=== PATIENT | female | born 1945 | race American Indian/Alaskan Native ===

== ENCOUNTER 2020-07-08 14:53 | Inpatient (IN) | payer MEDICARE ==
[2020-07-08] MEDS ORDERED: DEXTROSE 50% IN WATER (25GM) 50 ML SYRINGE IV ONE ×5 (15:01→15:55)
[2020-07-08] MEDS ORDERED: SUCCINYLCHOLINE CHLORIDE 200 MG/10 ML INJ MDV ONE (15:18)
[2020-07-08] MEDS ORDERED: ETOMIDATE 20 MG/10 ML INJ IV ONE ×2 (15:18→15:34)
[2020-07-08] MEDS ORDERED: SODIUM CHLORIDE 0.9% 1000 ML 2,000 ML ONE (15:32)
[2020-07-08] MEDS ORDERED: SUCCINYLCHOLINE CHLORIDE 200 MG/10 ML INJ MDV IV ONE (15:34)
[2020-07-08] MEDS ORDERED: LORazepam 2 MG/ML VIAL IV PRN (15:47)
[2020-07-08] MEDS ORDERED: MINERAL OIL/PETROLATUM, WHITE OPHTH OINT 3.5 GM OU PRN (15:47)
[2020-07-08] MEDS ORDERED: LIP THERAPY VASELINE TP PRN (15:47)
[2020-07-08 15:58] LABS: Hemoglobin 8.2 gm/dl (10.1-14.3); Mean Corpuscular HGB Conc 31 % (30-34); Mean Corpuscular Volume 99 fl (79-97); Platelet Count 114 K/mm3 (140-440); Red Blood Count 2.72 M/mm3 (3.65-5.03); Red Cell Distribution Width 16.3 % (13.2-15.2)
[2020-07-08 16:08] LABS: INR 2.88 (0.87-1.13)
[2020-07-08 16:14] LABS: Creatine Kinase MB 13.1 ng/mL (0.0-4.0)
[2020-07-08 16:15] LABS: Albumin 1.6 g/dL (3.9-5); Bilirubin,Direct 3.7 mg/dL (0-0.2)
[2020-07-08 16:39] LABS: Calcium 5.8 mg/dL (8.4-10.2)
[2020-07-08 16:41] LABS: Band Neutrophils # (Manual) 0.1 K/mm3; Total Cells Counted 100
[2020-07-08 16:42] LABS: Platelet Estimate Consistent w Auto; RBC Morphology Normal
[2020-07-08 16:43] LABS: Bacteria,Urine 3+ /HPF (Negative); Bilirubin,Urine NEG (Negative); Blood,Urine MOD (Negative); Color,Urine Yellow (Yellow); Mucus,Urine 1+ /HPF; Urobilinogen,Urine < 2.0 mg/dL (<2.0)
[2020-07-08] MEDS ORDERED: SODIUM CHLORIDE 0.9% 500 ML 500 ML IV ONE (16:55)
[2020-07-08] MEDS ORDERED: CEFEPIME/NS 1 GM/100 ML 1 GM/100 ML BAG IV ONE (16:56)
[2020-07-08] MEDS ORDERED: SODIUM CHLORIDE 0.9% 1000 ML 1,000 ML IV ONE (16:57)
--- NOTE | 2020-07-08 16:58 | XRay Report ---
CHEST 1 VIEW 07/08/2020 3:50 PM INDICATION / CLINICAL INFORMATION: Tube placement. COMPARISON: None available. FINDINGS: SUPPORT DEVICES: There is an endotracheal tube with the tip approximately 3.5 cm above the genoveva. Th ere is a nasogastric tube with the tip overlying the gastric body and the proximal sidehole several c entimeters below the gastroesophageal junction. HEART / MEDIASTINUM: The heart size and pulmonary vasculature are normal. There is calcification in t he aortic arch without aneurysm. LUNGS / PLEURA: There is mild to moderate generalized increased opacity of the right hemithorax ever red to the left. The left lung is clear. No pneumothorax. ADDITIONAL FINDINGS: There is mild gaseous distention of the stomach and several small bowel loops in the right upper quadrant. There are surgical changes involving the right shoulder. IMPRESSION: 1. Endotracheal and nasogastric tubes in satisfactory position. 2. Mild to moderate posterior layering right pleural effusion. 3. Gaseous distention of the stomach and proximal small bowel. Signer Name: Julian Cisse MD Signed: 07/08/2020 4:53 PM Workstation Name: [id number]
[2020-07-08] MEDS ORDERED: LORazepam 100 MG in SODIUM CHLORIDE 0.9% 50 ML, EMPTY BAG 0 ML IV SCH (17:00)
[2020-07-08] MEDS ORDERED: VANCOMYCIN PHARMACY TO DOSE IV SCH (17:00)
[2020-07-08] MEDS ORDERED: ALBUTEROL 2.5 MG/3 ML NEBU IH PRN (17:02)
[2020-07-08] MEDS ORDERED: ACETAMINOPHEN 325 MG TAB PO PRN (17:07)
[2020-07-08] MEDS ORDERED: SODIUM CHLORIDE 0.9% 1000 ML IV SOLN IV ONE (17:07)
[2020-07-08] MEDS ORDERED: SODIUM CHLORIDE 0.9% 1000 ML 1,000 ML IV SCH (17:15)
[2020-07-08] MEDS: HYDROmorphone 1 MG/1 ML INJ IV PRN ×2 (17:18→20:25)
[2020-07-08] MEDS: NORepinephrine/NS 4 MG-250 ML 4 MG/250 ML BAG IV SCH (17:30)
--- NOTE | 2020-07-08 17:53 | Emergency Department Report ---
ED General Adult HPI - General Chief complaint: Altered Mental Status Stated complaint: LOW BLOOD SUGAR PUI?: No Source: family, EMS Mode of arrival: Stretcher Limitations: Altered Mental Status, Physical Limitation - History of Present Illness Initial comments: This is a 75-year-old female who was brought in by EMS. Paramedics informing that they were not able to initiate an IV. They found the patient to have a blood glucose of 17. They were called because the patient has not been eating or drinking for at least the past 2 days. She was obviously found to be poorly responsive. Medics stated they were uncertain if the patient was "hospice". However, as I begun resuscitative efforts, I called the family and learned that this was not the case. The patient's daughter stated that the patient is able to assist with self-care. She was not well familiar with the patient's medical history. She stated that she takes care of the patient and that her only known diagnosis is dementia. She states that she is ordinarily able to feed herself and that she "never leaves her alone". The daughter stated she would like to have "everything done" to keep the patient alive. Patient's respiration was shallow in the field. The medics initiated assisted ventilation with an Ambu bag mask. On arrival patient's pulse oximetry did read in the mid 90s. Patient had no obvious IV access. Nurses were unsuccessful in securing a line. Therefore I utilized an IO drill placing an IO catheter into the patient's right tibia. This was done without difficulty. It was flushed and was working amply well. D50 is quite difficult to push through a IO catheter. Therefore, it was diluted. We ended up pushing I believe 3 Amp through the tibial IO. The p atyuliana's mental status did appear to be improving but her blood sugar only registered as high as 40. I was then able to secure an EJ line on the left. We administered D50 into the left EJ line. The patient became somewhat more arousable but was still quite lethargic. Respiratory rate did improve some however her respirations remain shallow. Thus, I determined that elective intubation would be necessitated. Patient was given etomidate and succinylcholine. She was intubated without difficulty. Further work-up was obtained. The patient was treated for hypothermia with a bear hugger. She was given empiric antibiotics for sepsis. Ultimately she was admitted to the hospital service. -: days(s) - Related Data Allergies Allergy/AdvReac Type Severity Reaction Status Date / Time No Known Allergies Allergy Unverified 07/08/20 16:05 ED Review of Systems ROS: Stated complaint: LOW BLOOD SUGAR Other details as noted in HPI Comment: Unobtainable due to pts medical conditions ED Past Medical Hx - Past Medical History Hx Hypertension: Yes Hx Diabetes: Yes Additional medical history: Dementia - Surgical History Additional Surgical History: unable to assess - Social History Smoking Status: Unknown if ever smoked ED Physical Exam - General Limitations: Altered Mental Status, Physical Limitation General appearance: in no apparent distress, other (Shallow respirations) - Head Head exam: Present: atraumatic, normocephalic - Eye Eye exam: Present: normal appearance, scleral icterus - ENT ENT exam: Present: mucous membranes dry - Neck Neck exam: Present: normal inspection. Absent: tenderness, meningismus - Respiratory Respiratory exam: Present: respiratory distress (Shallow respirations, poor effort), other (Somewhat distant breath sounds on the right) - Cardiovascular Cardiovascular Exam: Present: regular rate, normal rhythm. Absent: systolic murmur, diastolic murmur, rubs, gallop - GI/Abdominal GI/Abdominal exam: Present: soft, distended, normal bowel sounds. Absent: tenderness, guarding, rebound, rigid - Extremities Exam Extremities exam: Present: other (No acute deformity) - Back Exam Back exam: Present: other (Initially unable to assess) - Neurological Exam Neurological exam: Present: altered, other (Appears to move all extremities) - Psychiatric Psychiatric exam: Present: other (Inapplicable) - Skin Skin exam: Present: warm, dry, intact, ecchymosis. Absent: rash ED Course Vital Signs 07/08/20 07/08/20 15:02 15:50 Temperature 92.6 F L Pulse Rate 61 69 Respiratory 8 L Rate Blood Pressure 104/71 91/57 O2 Sat by Pulse 78 L 100 Oximetry - Reevaluation(s) Reevaluation #1: As above initial axis through right IO, followed by left EJ, followed by right femoral triple-lumen access. Intubation following RSI without difficulty. Chest x-ray confirms tube posit ions. Right pleural fluid noted. Initial blood pressure was 100 systolic. The patient was given D50 as above indicated. She was given volume boluses. Empiric antibiotics were ordered. Ultimately the blood pressure deteriorated and the patient was placed on Levophed. Patient with multiple metabolic abnormalities, presumed sepsis, profound hypoglycemia followed by iatrogenic hyperglycemia. Apparently the Accu-Chek machine was in accurate as serial values continue to read low while laboratory assessment revealed hyperglycemia. Passive rewarming. CTs are pending. Care the patient has been transferred to the hospitalist service. 07/08/20 18:02 - Central Line Placement Right Femoral Consent Obtained: emergent situation Time Out Performed: No Patient Placed on Monitor/Pulse Ox: Yes MD Prep: mask, gown, gloves Central Line Prep: Chlorhexidine scrub Local Anesthesia Used: Lidocaine 1% Amount of Anesthesia Used (mls): 5 Ultrasound Used for Placement: No Reason for Insertion: Emergency Venous Access Bloods Obtained for Lab: No Central Line Position: good blood return (Nonpulsatile venous), sutured in place with 3-0 Dressing Applied: Tegaderm Patient Tolerated Procedure: well Complications: none - EJ/Peripheral Line Neck L Time Out Performed: No Indications: nurses unable to establis Skin Cleansed in Sterile Fashion: Yes Size: 20 Dressing Placed: Tegaderm Patient Tolerated Procedure: well - Intubation Time Out Performed: No Sedative: Etomidate Paralytic: Succinylcholine Laryngoscope: Jonnathan Size: 3 ET Tube Size: 7.5 Tube Secured Depth (cm): 22 Tube Secured Location: lips Tube Placement Confirmation: visualized tube passing t, no breath sounds over epi, confirmation by capnometr Patient Tolerated Procedure: well Intubation Complications: none Additional Comments: Single attempt. - IO Right Tibia Consent Obtained: emergent situation Time Out Performed: No IO Instrument Used to Penetrate the Cortex: battery powered IO drill Patient Tolerated Procedure: well Complications: none ED Medical Decision Making - Lab Data Result diagrams: 07/08/20 15:45 07/08/20 15:45 Laboratory Results - last 24 hr 07/08/20 07/08/20 07/08/20 15:12 15:28 15:35 WBC RBC Hgb Hct MCV MCH MCHC RDW Plt Count Add Manual Diff Total Counted Seg Neuts % (Manual) Band Neutrophils % Lymphocytes % (Manual) Monocytes % (Manual) Nucleated RBC % Seg Neutrophils # Man Band Neutrophils # Lymphocytes # (Manual) Abs React Lymphs (Man) Monocytes # (Manual) Eosinophils # (Manual) Basophils # (Manual) Metamyelocytes # Myelocytes # Promyelocytes # Blast Cells # WBC Morphology Hypersegmented Neuts Hyposegmented Neuts Hypogranular Neuts Smudge Cells Toxic Granulation Toxic Vacuolation Dohle Bodies Pelger-Huet Anomaly Joss Rods Platelet Estimate Clumped Platelets Plt Clumps, EDTA Large Platelets Giant Platelets Platelet Satelliting Plt Morphology Comment RBC Morphology Dimorphic RBCs Polychromasia Hypochromasia Poikilocytosis Anisocytosis Microcytosis Macrocytosis Spherocytes Pappenheimer Bodies Sickle Cells Target Cells Tear Drop Cells Ovalocytes Helmet Cells [place] Bodies [place] Rings Art Cells Bite Cells Crenated Cell Elliptocytes Acanthocytes (Spur) Rouleaux Hemoglobin C Crystals Schistocytes Malaria parasites Barron Bodies Hem Pathologist Commnt PT INR ABG pH POC ABG pCO2 POC ABG pO2 POC ABG HCO3 ABG O2 Saturation POC ABG Base Excess ABG Hemoglobin ABG Oxyhemoglobin ABG Methemoglobin ABG Sodium ABG Potassium ABG Chloride ABG Glucose VBG pH Carboxyhemoglobin FiO2 % Sodium Potassium Chloride Carbon Dioxide Anion Gap BUN Creatinine Estimated GFR BUN/Creatinine Ratio Glucose POC Glucose 17 L < 10 L 46 L Lactic Acid Calcium Phosphorus Magnesium Total Bilirubin Direct Bilirubin Indirect Bilirubin AST ALT Alkaline Phosphatase Ammonia Total Creatine Kinase CK-MB (CK-2) CK-MB (CK-2) Rel Index NT-Pro-B Natriuret Pep Total Protein Albumin Albumin/Globulin Ratio Arterial Blood Glucose Arterial Blood Ionized Calcium Urine Color Urine Turbidity Urine pH Ur Specific [place] Urine Protein Urine Glucose (UA) Urine Ketones Urine Blood Urine Nitrite Urine Bilirubin Urine Urobilinogen Ur Leukocyte Esterase Urine WBC (Auto) Urine RBC (Auto) U Epithel Cells (Auto) Urine Bacteria (Auto) Urine Mucus Blood Type Antibody Screen 07/08/20 07/08/20 07/08/20 15:40 15:45 15:45 WBC 11.5 H RBC 2.72 L Hgb 8.2 L Hct 27.0 L MCV 99 H MCH 30 MCHC 31 RDW 16.3 H Plt Count 114 L Add Manual Diff Complete Total Counted 100 Seg Neuts % (Manual) 92.0 H Band Neutrophils % 1.0 Lymphocytes % (Manual) 5.0 L Monocytes % (Manual) 2.0 Nucleated RBC % Not Reportable Seg Neutrophils # Man 10.6 H Band Neutrophils # 0.1 Lymphocytes # (Manual) 0.6 L Abs React Lymphs (Man) 0.0 Monocytes # (Manual) 0.2 Eosinophils # (Manual) 0.0 Basophils # (Manual) 0.0 Metamyelocytes # 0.0 Myelocytes # 0.0 Promyelocytes # 0.0 Blast Cells # 0.0 WBC Morphology Not Reportable Hypersegmented Neuts Not Reportable Hyposegmented Neuts Not Reportable Hypogranular Neuts Not Reportable Smudge Cells Not Reportable Toxic Granulation Not Reportable Toxic Vacuolation Not Reportable Dohle Bodies Not Reportable Pelger-Huet Anomaly Not Reportable Joss Rods Not Reportable Platelet Estimate Consistent w auto Clumped Platelets Not Reportable Plt Clumps, EDTA Not Reportable Large Platelets Not Reportable Giant Platelets Not Reportable Platelet Satelliting Not Reportable Plt Morphology Comment Not Reportable RBC Morphology Normal Dimorphic RBCs Not Reportable Polychromasia Not Reportable Hypochromasia Not Reportable Poikilocytosis Not Reportable Anisocytosis Not Reportable Microcytosis Not Reportable Macrocytosis Not Reportable Spherocytes Not Reportable Pappenheimer Bodies Not Reportable Sickle Cells Not Reportable Target Cells Not Reportable Tear Drop Cells Not Reportable Ovalocytes Not Reportable Helmet Cells Not Reportable [place] Bodies Not Reportable [place] Rings Not Reportable Art Cells Not Reportable Bite Cells Not Reportable Crenated Cell Not Reportable Elliptocytes Not Reportable Acanthocytes (Spur) Not Reportable Rouleaux Not Reportable Hemoglobin C Crystals Not Reportable Schistocytes Not Reportable Malaria parasites Not Reportable Barron Bodies Not Reportable Hem Pathologist Commnt No PT 30.5 H INR 2.88 H ABG pH POC ABG pCO2 POC ABG pO2 POC ABG HCO3 ABG O2 Saturation POC ABG Base Excess ABG Hemoglobin ABG Oxyhemoglobin ABG Methemoglobin ABG Sodium ABG Potassium ABG Chloride ABG Glucose VBG pH Carboxyhemoglobin FiO2 % Sodium Potassium Chloride Carbon Dioxide Anion Gap BUN Creatinine Estimated GFR BUN/Creatinine Ratio Glucose POC Glucose 11 L Lactic Acid Calcium Phosphorus Magnesium Total Bilirubin Direct Bilirubin Indirect Bilirubin AST ALT Alkaline Phosphatase Ammonia Total Creatine Kinase CK-MB (CK-2) CK-MB (CK-2) Rel Index NT-Pro-B Natriuret Pep Total Protein Albumin Albumin/Globulin Ratio Arterial Blood Glucose Arterial Blood Ionized Calcium Urine Color Urine Turbidity Urine pH Ur Specific [place] Urine Protein Urine Glucose (UA) Urine Ketones Urine Blood Urine Nitrite Urine Bilirubin Urine Urobilinogen Ur Leukocyte Esterase Urine WBC (Auto) Urine RBC (Auto) U Epithel Cells (Auto) Urine Bacteria (Auto) Urine Mucus Blood Type Antibody Screen 07/08/20 07/08/20 07/08/20 15:45 15:45 15:45 WBC RBC Hgb Hct MCV MCH MCHC RDW Plt Count Add Manual Diff Total Counted Seg Neuts % (Manual) Band Neutrophils % Lymphocytes % (Manual) Monocytes % (Manual) Nucleated RBC % Seg Neutrophils # Man Band Neutrophils # Lymphocytes # (Manual) Abs React Lymphs (Man) Monocytes # (Manual) Eosinophils # (Manual) Basophils # (Manual) Metamyelocytes # Myelocytes # Promyelocytes # Blast Cells # WBC Morphology Hypersegmented Neuts Hyposegmented Neuts Hypogranular Neuts Smudge Cells Toxic Granulation Toxic Vacuolation Dohle Bodies Pelger-Huet Anomaly Joss Rods Platelet Estimate Clumped Platelets Plt Clumps, EDTA Large Platelets Giant Platelets Platelet Satelliting Plt Morphology Comment RBC Morphology Dimorphic RBCs Polychromasia Hypochromasia Poikilocytosis Anisocytosis Microcytosis Macrocytosis Spherocytes Pappenheimer Bodies Sickle Cells Target Cells Tear Drop Cells Ovalocytes Helmet Cells [place] Bodies [place] Rings [place] Cells Bite Cells Crenated Cell Elliptocytes Acanthocytes (Spur) Rouleaux Hemoglobin C Crystals Schistocytes Malaria parasites Barron Bodies Hem Pathologist Commnt PT INR ABG pH POC ABG pCO2 POC ABG pO2 POC ABG HCO3 ABG O2 Saturation POC ABG Base Excess ABG Hemoglobin ABG Oxyhemoglobin ABG Methemoglobin ABG Sodium ABG Potassium ABG Chloride ABG Glucose VBG pH 7.365 Carboxyhemoglobin FiO2 % Sodium 133 L Potassium 3.0 L Chloride 93.9 L Carbon Dioxide 10 L Anion Gap 32 BUN 20 H Creatinine 2.9 H Estimated GFR 16 BUN/Creatinine Ratio 7 Glucose 550 H* POC Glucose Lactic Acid 13.00 H* Calcium 5.8 L* Phosphorus 5.10 H Magnesium 2.20 Total Bilirubin 4.60 H Direct Bilirubin 3.7 H Indirect Bilirubin 0.9 AST 479 H ALT 184 H Alkaline Phosphatase 243 H Ammonia Total Creatine Kinase 963 H CK-MB (CK-2) 13.1 H CK-MB (CK-2) Rel Index 1.3 NT-Pro-B Natriuret Pep 13609 H Total Protein 4.9 L Albumin 1.6 L Albumin/Globulin Ratio 0.5 Arterial Blood Glucose Arterial Blood Ionized Calcium Urine Color Urine Turbidity Urine pH Ur Specific [place] Urine Protein Urine Glucose (UA) Urine Ketones Urine Blood Urine Nitrite Urine Bilirubin Urine Urobilinogen Ur Leukocyte Esterase Urine WBC (Auto) Urine RBC (Auto) U Epithel Cells (Auto) Urine Bacteria (Auto) Urine Mucus Blood Type Antibody Screen 07/08/20 07/08/20 07/08/20 15:45 15:45 16:02 WBC RBC Hgb Hct MCV MCH MCHC RDW Plt Count Add Manual Diff Total Counted Seg Neuts % (Manual) Band Neutrophils % Lymphocytes % (Manual) Monocytes % (Manual) Nucleated RBC % Seg Neutrophils # Man Band Neutrophils # Lymphocytes # (Manual) Abs React Lymphs (Man) Monocytes # (Manual) Eosinophils # (Manual) Basophils # (Manual) Metamyelocytes # Myelocytes # Promyelocytes # Blast Cells # WBC Morphology Hypersegmented Neuts Hyposegmented Neuts Hypogranular Neuts Smudge Cells Toxic Granulation Toxic Vacuolation Dohle Bodies Pelger-Huet Anomaly Joss Rods Platelet Estimate Clumped Platelets Plt Clumps, EDTA Large Platelets Giant Platelets Platelet Satelliting Plt Morphology Comment RBC Morphology Dimorphic RBCs Polychromasia Hypochromasia Poikilocytosis Anisocytosis Microcytosis Macrocytosis Spherocytes Pappenheimer Bodies Sickle Cells Target Cells Tear Drop Cells Ovalocytes Helmet Cells [place] Bodies [place] Rings [place] Cells Bite Cells Crenated Cell Elliptocytes Acanthocytes (Spur) Rouleaux Hemoglobin C Crystals Schistocytes Malaria parasites Barron Bodies Hem Pathologist Commnt PT INR ABG pH POC ABG pCO2 POC ABG pO2 POC ABG HCO3 ABG O2 Saturation POC ABG Base Excess ABG Hemoglobin ABG Oxyhemoglobin ABG Methemoglobin ABG Sodium ABG Potassium ABG Chloride ABG Glucose VBG pH Carboxyhemoglobin FiO2 % Sodium Potassium Chloride Carbon Dioxide Anion Gap BUN Creatinine Estimated GFR BUN/Creatinine Ratio Glucose POC Glucose 101 Lactic Acid Calcium Phosphorus Magnesium Total Bilirubin Direct Bilirubin Indirect Bilirubin AST ALT Alkaline Phosphatase Ammonia 150.0 H Total Creatine Kinase CK-MB (CK-2) CK-MB (CK-2) Rel Index NT-Pro-B Natriuret Pep Total Protein Albumin Albumin/Globulin Ratio Arterial Blood Glucose Arterial Blood Ionized Calcium Urine Color Urine Turbidity Urine pH Ur Specific [place] Urine Protein Urine Glucose (UA) Urine Ketones Urine Blood Urine Nitrite Urine Bilirubin Urine Urobilinogen Ur Leukocyte Esterase Urine WBC (Auto) Urine RBC (Auto) U Epithel Cells (Auto) Urine Bacteria (Auto) Urine Mucus Blood Type O POSITIVE Antibody Screen Negative 07/08/20 07/08/20 07/08/20 16:07 16:10 17:00 WBC RBC Hgb Hct MCV MCH MCHC RDW Plt Count Add Manual Diff Total Counted Seg Neuts % (Manual) Band Neutrophils % Lymphocytes % (Manual) Monocytes % (Manual) Nucleated RBC % Seg Neutrophils # Man Band Neutrophils # Lymphocytes # (Manual) Abs React Lymphs (Man) Monocytes # (Manual) Eosinophils # (Manual) Basophils # (Manual) Metamyelocytes # Myelocytes # Promyelocytes # Blast Cells # WBC Morphology Hypersegmented Neuts Hyposegmented Neuts Hypogranular Neuts Smudge Cells Toxic Granulation Toxic Vacuolation Dohle Bodies Pelger-Huet Anomaly Joss Rods Platelet Estimate Clumped Platelets Plt Clumps, EDTA Large Platelets Giant Platelets Platelet Satelliting Plt Morphology Comment RBC Morphology Dimorphic RBCs Polychromasia Hypochromasia Poikilocytosis Anisocytosis Microcytosis Macrocytosis Spherocytes Pappenheimer Bodies Sickle Cells Target Cells Tear Drop Cells Ovalocytes Helmet Cells [place] Bodies [place] Rings Art Cells Bite Cells Crenated Cell Elliptocytes Acanthocytes (Spur) Rouleaux Hemoglobin C Crystals Schistocytes Malaria parasites Barron Bodies Hem Pathologist Commnt PT INR ABG pH 7.327 POC ABG pCO2 18.0 L POC ABG pO2 222.7 H POC ABG HCO3 9.2 ABG O2 Saturation 99.5 POC ABG Base Excess -15.1 ABG Hemoglobin 8.2 L ABG Oxyhemoglobin 99.0 H ABG Methemoglobin 0.3 ABG Sodium 132.2 L ABG Potassium 2.9 L ABG Chloride 104.0 ABG Glucose 627 H VBG pH Carboxyhemoglobin 0.2 L FiO2 % 50.0 Sodium Potassium Chloride Carbon Dioxide Anion Gap BUN Creatinine Estimated GFR BUN/Creatinine Ratio Glucose POC Glucose 351 H Lactic Acid Calcium Phosphorus Magnesium Total Bilirubin Direct Bilirubin Indirect Bilirubin AST ALT Alkaline Phosphatase Ammonia Total Creatine Kinase CK-MB (CK-2) CK-MB (CK-2) Rel Index NT-Pro-B Natriuret Pep Total Protein Albumin Albumin/Globulin Ratio Arterial Blood Glucose 627 H Arterial Blood Ionized Calcium 3.2 L Urine Color Yellow Urine Turbidity Turbid Urine pH 5.0 Ur Specific [place] 1.005 Urine Protein 100 mg/dl Urine Glucose (UA) Neg Urine Ketones Neg Urine Blood Mod Urine Nitrite Neg Urine Bilirubin Neg Urine Urobilinogen < 2.0 Ur Leukocyte Esterase Lg Urine WBC (Auto) 87.0 H Urine RBC (Auto) 62.0 U Epithel Cells (Auto) 25.0 H Urine Bacteria (Auto) 3+ Urine Mucus 1+ Blood Type Antibody Screen - Radiology Data IMPRESSION: 1. Endotracheal and nasogastric tubes in satisfactory position. 2. Mild to moderate posterior layering right pleural effusion. 3. Gaseous distention of the stomach and proximal small bowel. Critical Care Time: Yes Critical care time in (mins) excluding proc time.: 90 Critical care attestation.: If time is entered above; I have spent that time in minutes in the direct care of this critically ill patient, excluding procedure time. ED Disposition Clinical Impression: Septic shock, Acute renal injury, Chronic liver disease, Coagulopathy, Hypoglycemia, Acute encephalopathy, Thrombocytopenia Sepsis with acute liver failure and septic shock Qualifiers: Sepsis type: sepsis due to unspecified organism Hepatic coma status: unspecified Qualified Code(s): A41.9 - Sepsis, unspecified organism; R65.21 - Severe sepsis with septic shock; K72.01 - Acute and subacute hepatic failure with coma UTI (urinary tract infection) Qualifiers: Urinary tract infection type: site unspecified Hematuria presence: without hematuria Qualified Code(s): N39.0 - Urinary tract infection, site not specified Hypothermia Qualifiers: Encounter type: initial encounter Qualified Code(s): T68.XXXA - Hypothermia, initial encounter Disposition: OP ADMIT IP TO THIS HOSP Is pt being admited?: Yes Does the pt Need Aspirin: No (Low platelets and coagulopathy, CT pending, defer to hospitalist) Condition: Stable Referrals: PRIMARY CARE,MD [Primary Care Provider] - 3-5 Days
[2020-07-08] MEDS ORDERED: CEFEPIME/NS 2 GM/100 ML 2 GM/100 ML BAG IV SCH (18:00)
[2020-07-08] MEDS ORDERED: VANCOMYCIN/NS 1 GM/250 ML 1 GM/250 ML BAG IV ONE (18:00)
[2020-07-08] MEDS ORDERED: CEFEPIME/NS 1 GM/100 ML 1 GM/100 ML BAG IV SCH (18:00)
[2020-07-08] MEDS ORDERED: FAMOTIDINE 20 MG/2 ML INJ IV SCH ×2 (18:00→22:00)
[2020-07-08 19:07] LABS: Calcium 5.3 mg/dL (8.4-10.2)
--- NOTE | 2020-07-08 19:11 | History and Physical Report ---
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 Patient is intubated and on ventilatory support at the time my evaluation exam to provide history. Patient history taken from EMS staff, ED staff, as well as the patient daughter who is available by telephone for interview. As per daughter the patient has experienced increased confusion and agitation and decreased oral intake over the past 3 weeks with progressively worsening symptoms over the same timeframe. Patient is currently bedbound and nonambulatory with a reported palliative performance score 30% and requires 6/6 assistance with activities of daily living. Patient daughter reports that she was found to have decreased res ponsiveness this morning. EMS was notified and upon arrival the patient was found to be in distress and subsequently transported to [facility] for further care and evaluation of the aforementioned symptoms. The patient was seen and evaluated in the emergency department. All lab and imaging studies reviewed. Patient was subsequently found to be in distress and found to have severe sepsis complicated by shock suspected secondary to urinary tract infection, shock liver. Patient also found to have DKA, rhabdomyolysis, EFREM with ATN, metabolic encephalopathy, acute decompensation of congestive heart failure, hypothermia. The patient was found to be in respiratory distress arrest and unable to protect her airway and was subsequently intubated and placed on ventilatory support in the emergency department. Patient found to have poor prognosis. Patient admitted to ICU and initiated on sepsis protocol as well as DKA protocol. Patient found to have multiple organ dysfunction syndrome. No further history is obtainable. Advanced care planning conducted in ED. No prior admission for review. No medication listed at time of admission for reconciliation. Critical care team consulted in ED. Nephrology team consulted in ED. Past History Past Medical History: diabetes, hypertension, stroke, other (See HPI) Past Surgical History: No surgical history, Other (Reviewed) Social history: single, lives with family. denies: smoking, alcohol abuse, prescription drug abuse Family history: diabetes, hypertension Medications and Allergies Allergies Allergy/AdvReac Type Severity Reaction Status Date / Time No Known Allergies Allergy Unverified 07/08/20 16:05 Active Meds: Active Medications Acetaminophen (Acetaminophen 325 Mg Tab) 650 mg PO Q6H PRN PRN Reason: Pain, Mild (1-3) Albuterol (Albuterol 2.5 Mg/3 Ml Nebu) 2.5 mg IH Q3HRT PRN PRN Reason: Shortness Of Breath Famotidine (Famotidine 20 Mg/2 Ml Inj) 20 mg IV Q24H BERKLEY Last Admin: 07/08/20 18:23 Dose: 20 mg Documented by: Hydromorphone HCl (Hydromorphone 1 Mg/1 Ml Inj) 0.25 mg IV Q4H PRN PRN Reason: Pain, Moderate (4-6) Last Admin: 07/08/20 17:18 Dose: 0.25 mg Documented by: Hydrophilic Ointment (Lip Therapy Vaseline) 1 applic TP Q2HR PRN PRN Reason: Dry Lips Lorazepam 100 mg/ Sodium Chloride/ Miscellaneous Information 100 mls @ 1 mls/hr IV TITR BERKLEY; Protocol Last Admin: 07/08/20 17:23 Dose: 1 mg/hr, 1 mls/hr Documented by: Norepinephrine (Levophed Drip 4 Mg/Ns 250 Ml) 4 mg in 250 mls @ 7.5 mls/hr IV TITR BERKLEY; Protocol Last Admin: 07/08/20 17:30 Dose: 2 mcg/min, 7.5 mls/hr Documented by: Sodium Chloride (Nacl 0.9% 1000 Ml) 1,000 mls @ 150 mls/hr IV DIRECT BERKLEY Cefepime HCl (Cefepime/Ns 1 Gm/100 Ml) 1 gm in 100 mls @ 200 mls/hr IV Q12H BERKLEY; Protocol Last Admin: 07/08/20 18:24 Dose: 200 mls/hr Documented by: Vancomycin HCl (Vancomycin/Ns 1 Gm/250 Ml) 1 gm in 250 mls @ 125 mls/hr IV ONCE ONE Stop: 07/08/20 19:59 Last Admin: 07/08/20 18:23 Dose: 125 mls/hr Documented by: Lorazepam (Lorazepam 2 Mg/Ml Vial) 2 mg IV Q10MIN PRN PRN Reason: Agitation Last Admin: 07/08/20 16:22 Dose: 2 mg Documented by: Multi-Ingred Cream/Lotion/Oil/Oint (Mineral Oil/Petrolatum, White Ophth Oint 3.5 Gm) 1 applic OU Q4HR PRN PRN Reason: Dry Eye(s) Senna/Docusate Sodium (Sennosides/Docusate Sodium 8.6/50 Mg Tab) 1 tab FEEDTUBE BID BERKLEY Sodium Chloride (Sodium Chloride 0.9% 10 Ml Flush Syringe) 10 ml IV BID BERKLEY Sodium Chloride (Sodium Chloride 0.9% 10 Ml Flush Syringe) 10 ml IV PRN PRN PRN Reason: LINE FLUSH Review of Systems ROS unobtainable: due to endotracheal tube, due to mental status Exam - Constitutional Vitals: Temp Pulse Resp BP Pulse Ox 92.1 F L 69 8 L 91/57 100 07/08/20 18:32 07/08/20 15:50 07/08/20 15:02 07/08/20 15:50 07/08/20 15:50 General appearance: Present: severe distress - EENT Eyes: Present: miosis ENT: hearing decreased - Neck Neck: Present: supple, normal ROM, masses or JVD - Respiratory Respiratory effort: labored Respiratory: bilateral: diminished, rhonchi - Cardiovascular Rhythm: other (Hypotensive) Heart Sounds: Present: S1 & S2. Absent: rub, click - Extremities Extremity abnormal: edema Peripheral Pulses: abnormal (Capillary refill greater than 3.5 seconds) - Abdominal General gastrointestinal: Present: soft, non-distended - Integumentary Integumentary: Present: dry, clammy, decreased turgor - Musculoskeletal Musculoskeletal: generalized weakness - Psychiatric Psychiatric: no appropriate mood/affect, no intact judgment & insight, no memory intact - Neurologic Neurologic: CNII-XII intact, no focal deficits, moves all extremities, no gait normal Results - Labs CBC & Chem 7: 07/08/20 15:45 07/08/20 18:15 Labs: Abnormal lab results 07/08/20 07/08/20 07/08/20 Range/Units 15:12 15:28 15:35 WBC (4.5-11.0) K/mm3 RBC (3.65-5.03) M/mm3 Hgb (10.1-14.3) gm/dl Hct (30.3-42.9) % MCV (79-97) fl RDW (13.2-15.2) % Plt Count (140-440) K/mm3 Seg Neuts % (Manual) (40.0-70.0) % Lymphocytes % (Manual) (13.4-35.0) % Seg Neutrophils # Man (1.8-7.7) K/mm3 Lymphocytes # (Manual) (1.2-5.4) K/mm3 PT (12.2-14.9) Sec. INR (0.87-1.13) POC ABG pCO2 (32.0-48.0) mmHg POC ABG pO2 (83-108) mmHg ABG Hemoglobin (12.0-17.5) ABG Oxyhemoglobin (94-98) ABG Sodium (136.0-145.0) mmol/L ABG Potassium (3.40-4.50) mmol/L ABG Glucose (65-95) mg/dL Carboxyhemoglobin (0.5-1.5) Sodium (137-145) mmol/L Potassium (3.6-5.0) mmol/L Chloride (98-107) mmol/L Carbon Dioxide (22-30) mmol/L BUN (7-17) mg/dL Creatinine (0.6-1.2) mg/dL Glucose (65-100) mg/dL POC Glucose 17 L < 10 L 46 L (70-105) mg/dL Lactic Acid (0.7-2.0) mmol/L Calcium (8.4-10.2) mg/dL Phosphorus (2.5-4.5) mg/dL Total Bilirubin (0.1-1.2) mg/dL Direct Bilirubin (0-0.2) mg/dL AST (5-40) units/L ALT (7-56) units/L Alkaline Phosphatase (35-129) units/L Ammonia (25-60) umol/L Total Creatine Kinase (30-135) units/L CK-MB (CK-2) (0.0-4.0) ng/mL NT-Pro-B Natriuret Pep (0-900) pg/mL Total Protein (6.3-8.2) g/dL Albumin (3.9-5) g/dL Arterial Blood Glucose (65-95) mg/dL Arterial Blood Ionized Calcium (4.6-5.3) mg/dL Urine WBC (Auto) (0.0-6.0) /HPF U Epithel Cells (Auto) (0-13.0) /HPF 07/08/20 07/08/20 07/08/20 Range/Units 15:40 15:45 15:45 WBC 11.5 H (4.5-11.0) K/mm3 RBC 2.72 L (3.65-5.03) M/mm3 Hgb 8.2 L (10.1-14.3) gm/dl Hct 27.0 L (30.3-42.9) % MCV 99 H (79-97) fl RDW 16.3 H (13.2-15.2) % Plt Count 114 L (140-440) K/mm3 Seg Neuts % (Manual) 92.0 H (40.0-70.0) % Lymphocytes % (Manual) 5.0 L (13.4-35.0) % Seg Neutrophils # Man 10.6 H (1.8-7.7) K/mm3 Lymphocytes # (Manual) 0.6 L (1.2-5.4) K/mm3 PT 30.5 H (12.2-14.9) Sec. INR 2.88 H (0.87-1.13) POC ABG pCO2 (32.0-48.0) mmHg POC ABG pO2 (83-108) mmHg ABG Hemoglobin (12.0-17.5) ABG Oxyhemoglobin (94-98) ABG Sodium (136.0-145.0) mmol/L ABG Potassium (3.40-4.50) mmol/L ABG Glucose (65-95) mg/dL Carboxyhemoglobin (0.5-1.5) Sodium (137-145) mmol/L Potassium (3.6-5.0) mmol/L Chloride (98-107) mmol/L Carbon Dioxide (22-30) mmol/L BUN (7-17) mg/dL Creatinine (0.6-1.2) mg/dL Glucose (65-100) mg/dL POC Glucose 11 L (70-105) mg/dL Lactic Acid (0.7-2.0) mmol/L Calcium (8.4-10.2) mg/dL Phosphorus (2.5-4.5) mg/dL Total Bilirubin (0.1-1.2) mg/dL Direct Bilirubin (0-0.2) mg/dL AST (5-40) units/L ALT (7-56) units/L Alkaline Phosphatase (35-129) units/L Ammonia (25-60) umol/L Total Creatine Kinase (30-135) units/L CK-MB (CK-2) (0.0-4.0) ng/mL NT-Pro-B Natriuret Pep (0-900) pg/mL Total Protein (6.3-8.2) g/dL Albumin (3.9-5) g/dL Arterial Blood Glucose (65-95) mg/dL Arterial Blood Ionized Calcium (4.6-5.3) mg/dL Urine WBC (Auto) (0.0-6.0) /HPF U Epithel Cells (Auto) (0-13.0) /HPF 07/08/20 07/08/20 07/08/20 Range/Units 15:45 15:45 15:45 WBC (4.5-11.0) K/mm3 RBC (3.65-5.03) M/mm3 Hgb (10.1-14.3) gm/dl Hct (30.3-42.9) % MCV (79-97) fl RDW (13.2-15.2) % Plt Count (140-440) K/mm3 Seg Neuts % (Manual) (40.0-70.0) % Lymphocytes % (Manual) (13.4-35.0) % Seg Neutrophils # Man (1.8-7.7) K/mm3 Lymphocytes # (Manual) (1.2-5.4) K/mm3 PT (12.2-14.9) Sec. INR (0.87-1.13) POC ABG pCO2 (32.0-48.0) mmHg POC ABG pO2 (83-108) mmHg ABG Hemoglobin (12.0-17.5) ABG Oxyhemoglobin (94-98) ABG Sodium (136.0-145.0) mmol/L ABG Potassium (3.40-4.50) mmol/L ABG Glucose (65-95) mg/dL Carboxyhemoglobin (0.5-1.5) Sodium 133 L (137-145) mmol/L Potassium 3.0 L (3.6-5.0) mmol/L Chloride 93.9 L (98-107) mmol/L Carbon Dioxide 10 L (22-30) mmol/L BUN 20 H (7-17) mg/dL Creatinine 2.9 H (0.6-1.2) mg/dL Glucose 550 H* (65-100) mg/dL POC Glucose (70-105) mg/dL Lactic Acid 13.00 H* (0.7-2.0) mmol/L Calcium 5.8 L* (8.4-10.2) mg/dL Phosphorus 5.10 H (2.5-4.5) mg/dL Total Bilirubin 4.60 H (0.1-1.2) mg/dL Direct Bilirubin 3.7 H (0-0.2) mg/dL AST 479 H (5-40) units/L ALT 184 H (7-56) units/L Alkaline Phosphatase 243 H (35-129) units/L Ammonia 150.0 H (25-60) umol/L Total Creatine Kinase 963 H (30-135) units/L CK-MB (CK-2) 13.1 H (0.0-4.0) ng/mL NT-Pro-B Natriuret Pep 14236 H (0-900) pg/mL Total Protein 4.9 L (6.3-8.2) g/dL Albumin 1.6 L (3.9-5) g/dL Arterial Blood Glucose (65-95) mg/dL Arterial Blood Ionized Calcium (4.6-5.3) mg/dL Urine WBC (Auto) (0.0-6.0) /HPF U Epithel Cells (Auto) (0-13.0) /HPF 07/08/20 07/08/20 07/08/20 Range/Units 16:07 16:10 17:00 WBC (4.5-11.0) K/mm3 RBC (3.65-5.03) M/mm3 Hgb (10.1-14.3) gm/dl Hct (30.3-42.9) % MCV (79-97) fl RDW (13.2-15.2) % Plt Count (140-440) K/mm3 Seg Neuts % (Manual) (40.0-70.0) % Lymphocytes % (Manual) (13.4-35.0) % Seg Neutrophils # Man (1.8-7.7) K/mm3 Lymphocytes # (Manual) (1.2-5.4) K/mm3 PT (12.2-14.9) Sec. INR (0.87-1.13) POC ABG pCO2 18.0 L (32.0-48.0) mmHg POC ABG pO2 222.7 H (83-108) mmHg ABG Hemoglobin 8.2 L (12.0-17.5) ABG Oxyhemoglobin 99.0 H (94-98) ABG Sodium 132.2 L (136.0-145.0) mmol/L ABG Potassium 2.9 L (3.40-4.50) mmol/L ABG Glucose 627 H (65-95) mg/dL Carboxyhemoglobin 0.2 L (0.5-1.5) Sodium (137-145) mmol/L Potassium (3.6-5.0) mmol/L Chloride (98-107) mmol/L Carbon Dioxide (22-30) mmol/L BUN (7-17) mg/dL Creatinine (0.6-1.2) mg/dL Glucose (65-100) mg/dL POC Glucose 351 H (70-105) mg/dL Lactic Acid (0.7-2.0) mmol/L Calcium (8.4-10.2) mg/dL Phosphorus (2.5-4.5) mg/dL Total Bilirubin (0.1-1.2) mg/dL Direct Bilirubin (0-0.2) mg/dL AST (5-40) units/L ALT (7-56) units/L Alkaline Phosphatase (35-129) units/L Ammonia (25-60) umol/L Total Creatine Kinase (30-135) units/L CK-MB (CK-2) (0.0-4.0) ng/mL NT-Pro-B Natriuret Pep (0-900) pg/mL Total Protein (6.3-8.2) g/dL Albumin (3.9-5) g/dL Arterial Blood Glucose 627 H (65-95) mg/dL Arterial Blood Ionized Calcium 3.2 L (4.6-5.3) mg/dL Urine WBC (Auto) 87.0 H (0.0-6.0) /HPF U Epithel Cells (Auto) 25.0 H (0-13.0) /HPF 07/08/20 07/08/20 Range/Units 18:15 18:15 WBC (4.5-11.0) K/mm3 RBC (3.65-5.03) M/mm3 Hgb (10.1-14.3) gm/dl Hct (30.3-42.9) % MCV (79-97) fl RDW (13.2-15.2) % Plt Count (140-440) K/mm3 Seg Neuts % (Manual) (40.0-70.0) % Lymphocytes % (Manual) (13.4-35.0) % Seg Neutrophils # Man (1.8-7.7) K/mm3 Lymphocytes # (Manual) (1.2-5.4) K/mm3 PT (12.2-14.9) Sec. INR (0.87-1.13) POC ABG pCO2 (32.0-48.0) mmHg POC ABG pO2 (83-108) mmHg ABG Hemoglobin (12.0-17.5) ABG Oxyhemoglobin (94-98) ABG Sodium (136.0-145.0) mmol/L ABG Potassium (3.40-4.50) mmol/L ABG Glucose (65-95) mg/dL Carboxyhemoglobin (0.5-1.5) Sodium (137-145) mmol/L Potassium 2.8 L* (3.6-5.0) mmol/L Chloride (98-107) mmol/L Carbon Dioxide 8 L* (22-30) mmol/L BUN 18 H (7-17) mg/dL Creatinine 2.8 H (0.6-1.2) mg/dL Glucose 388 H (65-100) mg/dL POC Glucose (70-105) mg/dL Lactic Acid 12.90 H* (0.7-2.0) mmol/L Calcium 5.3 L* (8.4-10.2) mg/dL Phosphorus (2.5-4.5) mg/dL Total Bilirubin (0.1-1.2) mg/dL Direct Bilirubin (0-0.2) mg/dL AST (5-40) units/L ALT (7-56) units/L Alkaline Phosphatase (35-129) units/L Ammonia (25-60) umol/L Total Creatine Kinase (30-135) units/L CK-MB (CK-2) (0.0-4.0) ng/mL NT-Pro-B Natriuret Pep (0-900) pg/mL Total Protein (6.3-8.2) g/dL Albumin (3.9-5) g/dL Arterial Blood Glucose (65-95) mg/dL Arterial Blood Ionized Calcium (4.6-5.3) mg/dL Urine WBC (Auto) (0.0-6.0) /HPF U Epithel Cells (Auto) (0-13.0) /HPF Assessment and Plan - Patient Problems (1) Septic shock Current Visit: Yes Status: Acute Plan to address problem: Sepsis protocol: CBC, CMP, IV antibiotic therapy, IV fluid resuscitation t herapy, patient placed on inotropic support, maintain mean arterial pressure greater than or equal to 65, monitor urine output every shift, monitor fluid balance, blood culture. The high probability of a clinically significant, sudden or life threatening deterioration of the [neuro, cardiac, pulmonary, renal, infectious disease, endocrine] system(s) required my full and direct attention, intervention and personal management. The aggregate critical care time was [95] minutes. This time is in addition to time spent performing reported procedures but includes the following: [x] Data Review and interpretation [x] Patient assessment and monitoring of vital signs [x] Documentation [x] Medication orders and management (2) Acute hypoxemic respiratory failure Current Visit: Yes Status: Acute Plan to address problem: Patient intubated and on ventilatory support: Critical care team consulted, wean vent as tolerated, daily spontaneous breathing trial, sedation holiday, daily arterial blood gas, (3) Shock liver Current Visit: Yes Status: Acute Plan to address problem: Treat septic shock, IV fluid resuscitation therapy, CMP, repeat CMP in a.m. (4) Toxic metabolic encephalopathy Current Visit: Yes Status: Acute Plan to address problem: CT head, neuro check, seizure precaution, aspiration precaution, treat sepsis, (5) Acute kidney injury (EFREM) with acute tubular necrosis (ATN) Current Visit: Yes Status: Acute Plan to address problem: IV fluid resuscitation therapy, renal team consulted, monitor urine output every shift, BMP, repeat BMP in a.m. to monitor serum creatinine as well as GFR (6) Acute CHF Current Visit: Yes Status: Acute Qualifiers: Heart failure type: combined systolic and diastolic Qualified Code(s): I50.41 - Acute combined systolic (congestive) and diastolic (congestive) heart failure Plan to address problem: BNP, thyroid panel, magnesium level, cardiology team consulted, patient currently on Kendra tropic support, supportive care. Monitor fluid balance, (7) Rhabdomyolysis Current Visit: Yes Status: Acute Qualifiers: Encounter type: initial encounter Plan to address problem: IV fluid resuscitation therapy, IV bicarbonate therapy, repeat CK level in a.m. Nephrology team consulted. (8) DKA (diabetic ketoacidoses) Current Visit: Yes Status: Acute Plan to address problem: DKA protocol: Insulin drip, IV fluid resuscitation therapy, serial BMP, potassium repletion as per protocol, monitor anion gap. (9) UTI (urinary tract infection) Current Visit: Yes Status: Acute Qualifiers: Encounter type: initial encounter Plan to address problem: IV antibiotic therapy, urinalysis, CBC (10) Acidosis Current Visit: Yes Status: Acute Plan to address problem: IV bicarbonate therapy, treat sepsis, IV fluid resuscitation therapy, serial lactic acid level. (11) DVT prophylaxis Current Visit: Yes Status: Acute Plan to address problem: SCD to bilateral lower extremities while in bed, prophylactic anticoagulation (12) Advance care planning Current Visit: Yes Status: Acute Plan to address problem: Disease education conducted, care plan discussed, diagnosis discussed, prognosis discussed, patient family acknowledges poor prognosis as well as understanding agreement with care plan. Patient is full code for now. +30 minutes. Discussed care plan with patient daughter Rebekah Griggs who acknowledges understanding and agreement with care plan. Patient family member telephone #[phone].
[2020-07-08] MEDS ORDERED: DEXTROSE 50% IN WATER (25GM) 50 ML SYRINGE IV PRN (19:36)
[2020-07-08] MEDS ORDERED: SODIUM BICARB 8.4% 50 MEQ/50 ML SYRINGE IV ONE ×3 (19:38→23:14)
[2020-07-08] MEDS ORDERED: INSULIN REGULAR, HUMAN 100 UNITS in SODIUM CHLORIDE 0.9% 99 ML IV SCH (20:00)
[2020-07-08] MEDS: POTASSIUM CHLORIDE 10 MEQ 10 MEQ/100 ML BAG IV SCH ×3 (20:33→23:37)
--- NOTE | 2020-07-08 21:12 | Cat Scan Report ---
CT head without contrast HISTORY: AMS. TECHNIQUE: Axial imaging performed from the skull apex through the skull base without the use of con trast. All CT scans at this location are performed using CT dose reduction for ALARA by means of aut omated exposure control. COMPARISON: None FINDINGS: Parenchyma: No acute intracranial hemorrhage or parenchymal abnormality. Ventricles: There is mild diffuse brain atrophy with commensurate ventricular enlargement which is l ikely age appropriate. Soft tissues: Soft tissues including the orbits appear normal. Bones: No acute osseous abnormality. Sinuses: Sinuses and mastoid air cells are clear. IMPRESSION: No acute abnormality. Signer Name: Dakota Yung MD Signed: 07/08/2020 9:07 PM Workstation Name: [id number]
--- NOTE | 2020-07-08 21:18 | Cat Scan Report ---
CT ABDOMEN AND PELVIS WITHOUT CONTRAST HISTORY: abd pain. COMPARISON: None. TECHNIQUE: CT images of the abdomen and pelvis were obtained without administration of intravenous co ntrast. All CT scans at this location are performed using CT dose reduction for ALARA by means of au tomated exposure control. FINDINGS: Lungs/bones: There is a moderate-sized pleural effusion on the right and mild bibasilar compressive atelectasis. Mild arthritic disease is present in the aortic valve. There are degenerative changes in the spine and pelvis with no acute osseous abnormality identified. Erosive changes are seen in the S I joints as may be seen with sacroiliitis. Abdomen/pelvis: There is a cirrhotic morphology of the liver with moderate to large volume ascites a nd diffuse mesenteric congestion. The spleen is normal in size. No large varices are identified, alth ough there may be a few small varices. Pancreas is unremarkable. There are simple bilateral renal cysts and mild bilateral adrenal thickenin g. An NG tube is present in the stomach terminating in the mid gastric body. There are segments of the small bowel which show mild wall thickening which could be related to diffu se ascites. There is also wall edema in the proximal one half of the colon which can be seen with asc ites and liver disease as well. Severe colonic diverticulosis is present. Urinary bladder is mostly collapsed with a Branch catheter in place. Uterus is not well-seen on this e xam and could be absent. There is mild anasarca. A small right inguinal hernia is present containing ascites fluid. IMPRESSION: 1. Cirrhotic morphology of the liver and findings of volume overload with moderate to large volume as cites, anasarca, and moderate-sized right-sided pleural effusion. 2. Areas of bowel wall thickening involving both small bowel and the colon. These findings could be s een with congestive arthropathy given cirrhosis, ascites, and generalized mesenteric congestion but p lease correlate with symptomatology. 3. Additional incidental findings as above. Signer Name: Dakota Yung MD Signed: 07/08/2020 9:14 PM Workstation Name: [id number]
[2020-07-08] MEDS ORDERED: SENNOSIDES/DOCUSATE SODIUM 8.6/50 MG TAB FEEDTUBE SCH (22:00)
[2020-07-08] MEDS ORDERED: EPINEPHrine 30 MG/30 ML INJ IV ONE (22:55)
[2020-07-08] MEDS ORDERED: CALCIUM CHLORIDE 1,000 MG/10 ML SYRINGE IV ONE (22:55)
[2020-07-08] MEDS ORDERED: EPINEPHrine 1 MG/10 ML SYRINGE ONE (22:55)
[2020-07-08] MEDS ORDERED: EPINEPHrine 1 MG/1 ML 8 MG in SODIUM CHLORIDE 0.9% 250ML 242 ML IV SCH (22:57)
[2020-07-08] MEDS ORDERED: VASOPRESSIN 20 UNIT in SODIUM CHLORIDE 0.9% 100 ML IV SCH (22:57)
[2020-07-08] MEDS ORDERED: EPINEPHRINE IV ONE (23:00)
[2020-07-08] MEDS ORDERED: SODIUM CHLORIDE 0.9% IV ONE (23:00)
[2020-07-08] MEDS ORDERED: VASOPRESSIN 20 UNIT in SODIUM CHLORIDE 0.9% 99 ML IV ONE (23:30)
--- NOTE | 2020-07-08 23:37 | Event Note ---
Date: 07/08/20 CODE JOE was called. Patient was found in asystole. Patient was given CPR as per ACLS protocol. 8 epi 2 bicarb, 2 calcium gluconate is given. Patient is getting potassium. Patient is also on Levophed drip, epi drip, vasopressin drip. Patient regained ROSC. Called family without any response. Patient is a full code
[2020-07-08 23:41] LABS: Free T4 (Free Thyroxine) 0.84 ng/dL (0.76-1.46)
[2020-07-09] MEDS ORDERED: SODIUM BICARBONATE 150 MEQ in SODIUM CHLORIDE 0.9% 1000 ML 1,000 ML IV ONE (00:30)
[2020-07-09] MEDS: NORepinephrine/NS 4 MG-250 ML 4 MG/250 ML BAG IV SCH (01:31)
[2020-07-09 01:49] VITALS: BP 68/39
[2020-07-09] MEDS: POTASSIUM CHLORIDE 10 MEQ 10 MEQ/100 ML BAG IV SCH (02:15)
--- NOTE | 2020-07-09 04:03 | Event Note ---
Date: 07/09/20 Patient has multiple codes overnight. Patient family made the patient DNR. Patient at 3.57 a.m. on 07/09/2020 due to cardiopulmonary arrest. Respiratory failure DKA sepsis. Patient is DNR, prognosis was poor. Family at the bedside
--- NOTE | 2020-07-09 11:08 | Death Summary ---
Summary - Providers Date of service: 07/09/20 Consults: 07/08/20 15:47 Consult to Dietitian/Nutrition [CONS] Routine Physician Instructions: Reason For Exam: Reason for Consult: Evaluate nutritional intake 07/08/20 17:02 Consult to Physician [CONS] Routine Comment: Consulting Provider: MARJ HE Physician Instructions: Reason For Exam: Sepsis, Respiratory Failure, MODS 07/08/20 19:21 Consult to Physician [CONS] Routine Comment: Consulting Provider: SHARIF CARRIZALES Physician Instructions: Reason For Exam: efrem 07/08/20 19:22 Consult to Physician [CONS] Routine Comment: Consulting Provider: PRITI MANNING Physician Instructions: Reason For Exam: CHF Attending: ROSENDO MANNING - summary Date of admission: 07/08/20 17:02 Date of : 07/09/20 Disposition: 75 YO Female with HTN, DM, 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 Patient was intubated and on ventilatory support at the time my evaluation and was unable to provide history. Patient history was taken from EMS staff, ED staff, as well as the patient daughter who is available by telephone for interview. As per daughter the patient had experienced increased confusion and agitation and decreased oral intake over the past 3 weeks with progressively worsening symptoms over the same timeframe. Patient is bedbound and nonambulatory with a reported palliative performance score 30% and requires 6/6 assistance with activities of daily living. Patient daughter reported that she was found to have decreased responsiveness this morning. EMS was notified and upon arrival the patient was found to be in distress and subsequently transported to [facility] for further care and evaluation of the aforementioned symptoms. The patient was seen and evaluated in the emergency department. All lab and imaging studies reviewed. Patient was subsequently found to be in distress and found to have s evere sepsis complicated by shock suspected secondary to urinary tract infection, shock liver. Patient also found to have DKA, rhabdomyolysis, EFREM with ATN, metabolic encephalopathy, acute decompensation of congestive heart failure, hypothermia. The patient was found to be in respiratory distress arrest and unable to protect her airway and was subsequently intubated and placed on ventilatory support in the emergency department. Patient found to have poor prognosis. Patient admitted to ICU and initiated on sepsis protocol as well as DKA protocol. Patient found to have multiple organ dysfunction syndrome. No further history was obtainable. Advanced care planning conducted in ED. the patient convalesced poorly during her hospital course. Patient was transferred to the intensive care unit and treated with the aforementioned care plans. The patient experienced cardiac arrest multiple times overnight. Upon arrival the patient's family the patient family elected to make patient DNR and initiate comfort measures. Patient seen and evaluated and found to have absent breath sounds on lung exam. 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 On neurologic exam the patient pupils are fixed and dilated. The patient was pronounced at 0357 hrs.. - Final diagnosis (1) Septic shock Note: Final diagnosis: (2) Acute hypoxemic respiratory failure Note: Final diagnosis: (3) Shock liver Note: Final diagnosis: (4) Toxic metabolic encephalopathy Note: Final diagnosis: (5) Acute kidney injury (EFREM) with acute tubular necrosis (ATN) Note: Final diagnosis: (6) Acute CHF Qualifiers: Heart failure type: combined systolic and diastolic Qualified Code(s): I50.41 - Acute combined systolic (congestive) and diastolic (congestive) heart failure Note: Final diagnosis: (7) Rhabdomyolysis Qualifiers: Encounter type: initial encounter Note: Final diagnosis: (8) DKA (diabetic ketoacidoses) Note: Final diagnosis: (9) UTI (urinary tract infection) Qualifiers: Encounter type: initial encounter Note: Final diagnosis: (10) Acidosis Note: Final diagnosis: (11) DVT prophylaxis Note: Final diagnosis: (12) Advance care planning Note: Final diagnosis:
--- NOTE | 2020-07-10 10:12 | Electrocardiograph Report ---
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
--- NOTE | 2020-07-10 10:13 | Electrocardiograph Report ---
[facility] Test Date: 2020-07-08 Test Time: 23:50:52 Pat Name: ESTHER WOOD Department: Room: A256 1 Gender: F Planning Associate: [id number] : 1945 Requested By: AURORA ESTES Order Number: [id number] Reading MD: Miguel Angel Pabon Measurements Intervals [place] Rate: 130 P: 102 MO: 157 QRS: 14 QRSD: 61 T: QT: 327 QTc: 482 Interpretive Statements Sinus tachycardia Low voltage, extremity and precordial leads Nonspecific T abnrm, anterolateral leads Electronically Signed On 07-10-2020 10:12:58 EDT by Miguel Angel Pabon
== END 2020-07-09 03:57 | DRG 871 ==
LOC: EDSEX → ED 14:53 → CC1 17:02
PROVIDERS: ADMIT Internal Medicine; ATTEND Internal Medicine
PROC: 06HY33Z Insertion of Infusion Device into Lower Vein, Percutaneous Approach (ICD-10-PCS; principal; 2020-07-08)
PROC: 0BH17EZ Insertion of Endotracheal Airway into Trachea, Via Natural or Artificial Opening (ICD-10-PCS; 2020-07-08)
PROC: 5A1935Z Respiratory Ventilation, Less than 24 Consecutive Hours (ICD-10-PCS; 2020-07-08)
PROC: 4A033R1 Measurement of Arterial Saturation, Peripheral, Percutaneous Approach (ICD-10-PCS; 2020-07-08)
DX: A41.9 Sepsis, unspecified organism (principal); E10.10 Type 1 diabetes mellitus with ketoacidosis without coma; J96.00 Acute respiratory failure, unspecified whether with hypoxia or hypercapnia; G93.41 Metabolic encephalopathy; K72.00 Acute and subacute hepatic failure without coma; N17.0 Acute kidney failure with tubular necrosis; R65.21 Severe sepsis with septic shock; I50.41 Acute combined systolic (congestive) and diastolic (congestive) heart failure; N39.0 Urinary tract infection, site not specified; M62.82 Rhabdomyolysis; I46.9 Cardiac arrest, cause unspecified; Z66 Do not resuscitate; I11.0 Hypertensive heart disease with heart failure; F03.90 Unspecified dementia, unspecified severity, without behavioral disturbance, psychotic disturbance, mood disturbance, and anxiety; I67.2 Cerebral atherosclerosis; F01.50 Vascular dementia, unspecified severity, without behavioral disturbance, psychotic disturbance, mood disturbance, and anxiety; T68.XXXA Hypothermia, initial encounter; Z83.3 Family history of diabetes mellitus; Z86.73 Personal history of transient ischemic attack (TIA), and cerebral infarction without residual deficits; Z82.49 Family history of ischemic heart disease and other diseases of the circulatory system
CPT/HCPCS: 31500; 36415; 70450; 71045; 74176; 80048; 80076; 81001; 82140; 82550; 82553; 82805; 82962; 83735; 83880; 84100; 84439; 84443; 85007; 85025; 85610; 86850; 86900; 86901; 87040; 87086; 93005; 94002; 96361; 96374; 99292; G0378; J0171; J0330; J0692; J1170; J2060; J3370; J3480; J7030; J7040; J7050